=== PATIENT | female | born 1950 | race Caucasian/White ===

== ENCOUNTER 2022-07-15 22:03 | Inpatient (IN) | payer MEDICARE, OTHER ==
[2022-07-15] MEDS ORDERED: Nitroglycerin 50 MG/250 ML BOT 250 ML ONE (22:10)
[2022-07-15 22:36] LABS: #Monocytes 0.9 thou/uL (0.11-0.59); %Basophils 0.3 % (0.0-1.0); %Eosinophils 0.1 % (0.0-10.0); %Lymphocytes 18.2 % (21.0-51.0); %Monocytes 8.2 % (0.0-10.0); %Neutrophils 73.3 % (42.0-75.0); Hemoglobin 13.3 g/dL (12.0-16.0); Mean Corpuscular HGB CONC 33.5 g/dL (32.0-36.0); Mean Corpuscular Hemoglobin 34.4 pg (27.0-31.0); Mean Platelet Volume 8.3 fL (7.4-10.4); Platelet Count 296 10x3/uL (130-400); RBC Distribution Width 13.8 % (11.5-14.5); Red Blood Cell (RBC) Count 3.85 mill/uL (4.20-5.40); White Blood Cell (WBC) Count 10.9 10x3/uL (4.8-10.8)
[2022-07-15] MEDS ORDERED: Azithromycin 500 MG VIAL ONE (22:54)
[2022-07-15 22:58] LABS: ALT (SGPT) 61 U/L (8-55); AST (SGOT) 40 U/L (5-34); Albumin 4.2 g/dL (3.4-4.8); Alkaline Phosphatase 97 U/L (40-110); Anion Gap 15 mmol/L (10-20); BUN (Urea Nitrogen) 27 mg/dL (9.8-20.1); Bilirubin, Total 0.9 mg/dL (0.2-1.2); Calc. Creatinine Clearance 0 mL/min (70-130); Calcium 9.8 mg/dL (7.8-10.44); Carbon Dioxide 27 mmol/L (23-31); Chloride 101 mmol/L (98-107); Estimated GFR 46; Globulin 3.3 g/dL (2.4-3.5); Glucose 146 mg/dL (83-110); Potassium 4.3 mmol/L (3.5-5.1); Protein, Total 7.5 g/dL (5.8-8.1); Sodium 139 mmol/L (136-145)
[2022-07-15] MEDS ORDERED: cefTRIAXone\\ROCEPHIN 1 GM VIAL ONE (22:58)
[2022-07-15] MEDS ORDERED: Ondansetron PF 4 MG/2 ML Vial IVP PRN (23:34)
[2022-07-15] MEDS ORDERED: Ondansetron ODT 4 MG TAB PO PRN (23:34)
[2022-07-15] MEDS ORDERED: Acetaminophen 325 MG TAB PO PRN (23:34)
[2022-07-15] MEDS ORDERED: Acetaminophen 650 MG Suppository PR PRN (23:34)
[2022-07-15] MEDS ORDERED: Dextrose 5% in Water 1,000 ML IV PRN (23:55)
[2022-07-15] MEDS ORDERED: Dextrose 50% Abboject 50 ML SYRINGE SLOW IVP PRN (23:55)
[2022-07-16 01:28] LABS: SARS-CoV-2 NAA Rapid Test Not Detected (NotDetected)
[2022-07-16 01:47] VITALS: BMI 30.1
[2022-07-16 02:03] LABS: Troponin I 0.106 ng/mL (< 0.028)
[2022-07-16 04:47] LABS: Troponin I 0.105 ng/mL (< 0.028)
[2022-07-16] MEDS ORDERED: Non-Formulary Item 1 EACH (Fluticasone/Umeclidin/Vilanter [Trelegy Ellipta 100-62.5-25] 1 IH SCH (09:00)
[2022-07-16] MEDS ORDERED: Albuterol Sulfate 2.5 mg/3 ml Neb NEB PRN (09:18)
[2022-07-16] MEDS ORDERED: Levothyroxine Sodium 75 MCG TAB PO SCH (09:30)
[2022-07-16] MEDS: Aspirin 81 mg Enteric Coated Tablet PO SCH (09:37)
[2022-07-16] MEDS: Ezetimibe 10 MG TAB PO SCH (09:37)
[2022-07-16] MEDS: methylPREDNISolone Sod Succ 40 MG VIAL IVP SCH ×2 (09:37→09:49)
[2022-07-16] MEDS: Furosemide 40 MG/4 ML VIAL SLOW IVP SCH (09:37)
[2022-07-16] MEDS: Enoxaparin Sodium 40 MG/0.4 ML SYRINGE SC SCH (09:38)
[2022-07-16 10:09] LABS: #Lymphocytes 0.5 thou/uL (1.20-3.40); #Monocytes 0.1 thou/uL (0.11-0.59); #Neutrophils 5.9 thou/uL (1.40-6.50); %Basophils 0.4 % (0.0-1.0); %Eosinophils 0.1 % (0.0-10.0); %Lymphocytes 7.4 % (21.0-51.0); %Neutrophils 90.1 % (42.0-75.0); Mean Corpuscular HGB CONC 31.9 g/dL (32.0-36.0); Mean Corpuscular Hemoglobin 33.1 pg (27.0-31.0); Mean Platelet Volume 8.5 fL (7.4-10.4); Platelet Count 257 10x3/uL (130-400); RBC Distribution Width 13.7 % (11.5-14.5); Red Blood Cell (RBC) Count 3.31 mill/uL (4.20-5.40); White Blood Cell (WBC) Count 6.5 10x3/uL (4.8-10.8)
[2022-07-16 10:22] LABS: Anion Gap 15 mmol/L (10-20); BUN (Urea Nitrogen) 30 mg/dL (9.8-20.1); Calc. Creatinine Clearance 47 mL/min (70-130); Calcium 9.2 mg/dL (7.8-10.44); Carbon Dioxide 25 mmol/L (23-31); Chloride 103 mmol/L (98-107); Estimated GFR 49; Glucose 242 mg/dL (83-110); Potassium 4.7 mmol/L (3.5-5.1); Sodium 138 mmol/L (136-145)
[2022-07-16] MEDS ORDERED: predniSONE 20 MG TAB PO SCH (11:00)
[2022-07-16] MEDS: Mometasone 100 MCG/PUFF (1 INHALER) INH SCH (19:30)
[2022-07-16] MEDS ORDERED: cefTRIAXone\\ROCEPHIN 1 GM in Sodium Chloride 0.9% 100 ML IVPB SCH (21:00)
[2022-07-16] MEDS: TICAGRELOR 90 MG TABLET PO SCH (21:01)
[2022-07-16] MEDS: Atorvastatin Calcium 40 MG TAB PO SCH (21:01)
[2022-07-16] MEDS: Artificial Tear Sol 15 ML BOT EA EYE SCH (21:01)
[2022-07-16] MEDS: Azithromycin 500 MG in Sodium Chloride 0.9% 250 ML 250 ML IVPB SCH (21:06)
[2022-07-17 04:35] LABS: #Lymphocytes 0.7 thou/uL (1.20-3.40); #Neutrophils 8.6 thou/uL (1.40-6.50); %Monocytes 9.7 % (0.0-10.0); %Neutrophils 83.3 % (42.0-75.0); Hemoglobin 9.9 g/dL (12.0-16.0); Mean Corpuscular HGB CONC 32.5 g/dL (32.0-36.0); Mean Corpuscular Hemoglobin 33.7 pg (27.0-31.0); Mean Platelet Volume 8.7 fL (7.4-10.4); Platelet Count 237 10x3/uL (130-400); RBC Distribution Width 13.8 % (11.5-14.5); Red Blood Cell (RBC) Count 2.93 mill/uL (4.20-5.40); White Blood Cell (WBC) Count 10.3 10x3/uL (4.8-10.8)
[2022-07-17 04:51] LABS: Anion Gap 13 mmol/L (10-20); BUN (Urea Nitrogen) 39 mg/dL (9.8-20.1); Calc. Creatinine Clearance 45 mL/min (70-130); Calcium 8.5 mg/dL (7.8-10.44); Carbon Dioxide 25 mmol/L (23-31); Chloride 102 mmol/L (98-107); Estimated GFR 46; Glucose 327 mg/dL (83-110); Magnesium 2.4 mg/dL (1.6-2.6); Potassium 4.9 mmol/L (3.5-5.1); Sodium 135 mmol/L (136-145)
[2022-07-17] MEDS: Levothyroxine Sodium 75 MCG TAB PO SCH (06:15)
[2022-07-17] MEDS: Mometasone 100 MCG/PUFF (1 INHALER) INH SCH ×2 (06:25→18:43)
[2022-07-17] MEDS ORDERED: predniSONE 5 MG TAB PO SCH (08:00)
[2022-07-17] MEDS: Aspirin 81 mg Enteric Coated Tablet PO SCH (08:14)
[2022-07-17] MEDS: Enoxaparin Sodium 40 MG/0.4 ML SYRINGE SC SCH (08:15)
[2022-07-17] MEDS: Furosemide 40 MG/4 ML VIAL SLOW IVP SCH (08:15)
[2022-07-17] MEDS: Ezetimibe 10 MG TAB PO SCH (08:15)
[2022-07-17] MEDS: TICAGRELOR 90 MG TABLET PO SCH ×2 (08:15→19:51)
[2022-07-17] MEDS: Artificial Tear Sol 15 ML BOT EA EYE SCH ×2 (08:21→19:52)
[2022-07-17] MEDS ORDERED: Escitalopram Oxalate 20 mg Tablet PO SCH (09:00)
[2022-07-17] MEDS ORDERED: Nitroglycerin 0.4 MG TAB (25 Tab Bottle) SL PRN (19:44)
[2022-07-17] MEDS ORDERED: Nitroglycerin 0.4 MG TAB (25 Tab Bottle) ONE (19:47)
[2022-07-17] MEDS: Atorvastatin Calcium 40 MG TAB PO SCH (19:51)
[2022-07-17] MEDS: Azithromycin 500 MG in Sodium Chloride 0.9% 250 ML 250 ML IVPB SCH (21:11)
[2022-07-18 04:31] LABS: #Lymphocytes 0.9 thou/uL (1.20-3.40); #Monocytes 0.6 thou/uL (0.11-0.59); #Neutrophils 6.1 thou/uL (1.40-6.50); %Basophils 0.3 % (0.0-1.0); %Eosinophils 0.1 % (0.0-10.0); %Lymphocytes 11.7 % (21.0-51.0); %Monocytes 8.1 % (0.0-10.0); %Neutrophils 79.8 % (42.0-75.0); Hemoglobin 9.7 g/dL (12.0-16.0); Mean Corpuscular HGB CONC 33.5 g/dL (32.0-36.0); Mean Corpuscular Hemoglobin 34.3 pg (27.0-31.0); Mean Platelet Volume 8.4 fL (7.4-10.4); Platelet Count 268 10x3/uL (130-400); RBC Distribution Width 13.8 % (11.5-14.5); Red Blood Cell (RBC) Count 2.83 mill/uL (4.20-5.40); White Blood Cell (WBC) Count 7.6 10x3/uL (4.8-10.8)
[2022-07-18 04:54] LABS: Anion Gap 11 mmol/L (10-20); BUN (Urea Nitrogen) 38 mg/dL (9.8-20.1); Calc. Creatinine Clearance 52 mL/min (70-130); Calcium 9.4 mg/dL (7.8-10.44); Carbon Dioxide 29 mmol/L (23-31); Chloride 102 mmol/L (98-107); Estimated GFR 54; Glucose 189 mg/dL (83-110); Potassium 4.1 mmol/L (3.5-5.1); Sodium 138 mmol/L (136-145)
[2022-07-18] MEDS: Levothyroxine Sodium 75 MCG TAB PO SCH (06:40)
[2022-07-18 07:28] VITALS: TEMP 97.6
[2022-07-18] MEDS: Mometasone 100 MCG/PUFF (1 INHALER) INH SCH (07:31)
[2022-07-18] MEDS: Artificial Tear Sol 15 ML BOT EA EYE SCH (07:58)
[2022-07-18] MEDS: Enoxaparin Sodium 40 MG/0.4 ML SYRINGE SC SCH (07:58)
[2022-07-18] MEDS: Aspirin 81 mg Enteric Coated Tablet PO SCH (07:58)
[2022-07-18] MEDS: Furosemide 40 MG/4 ML VIAL SLOW IVP SCH (07:59)
[2022-07-18] MEDS: Ezetimibe 10 MG TAB PO SCH (07:59)
[2022-07-18] MEDS: TICAGRELOR 90 MG TABLET PO SCH (07:59)
[2022-07-18] MEDS ORDERED: predniSONE 5 MG TAB PO SCH (08:00)
[2022-07-19] MEDS ORDERED: predniSONE 5 MG TAB PO SCH (08:00)
== END 2022-07-18 11:20 | disposition home or self-care (01) | DRG 193 ==
LOC: ERS 22:03 → EDBD 23:36 → IMCU/EMU 23:36
PROVIDERS: ADMIT Student in an Organized Health Care Education/Training Program; ATTEND Internal Medicine
PROC: 5A09457 Assistance with Respiratory Ventilation, 24-96 Consecutive Hours, Continuous Positive Airway Pressure (ICD-10-PCS; principal; 2022-07-15)
DX: J18.9 Pneumonia, unspecified organism (principal); J81.0 Acute pulmonary edema; J96.01 Acute respiratory failure with hypoxia; J44.1 Chronic obstructive pulmonary disease with (acute) exacerbation; N18.4 Chronic kidney disease, stage 4 (severe); I13.0 Hypertensive heart and chronic kidney disease with heart failure and stage 1 through stage 4 chronic kidney disease, or unspecified chronic kidney disease; I16.1 Hypertensive emergency; Z96.41 Presence of insulin pump (external) (internal); E10.22 Type 1 diabetes mellitus with diabetic chronic kidney disease; I50.9 Heart failure, unspecified; Z79.4 Long term (current) use of insulin; Z90.710 Acquired absence of both cervix and uterus; Z87.891 Personal history of nicotine dependence; Z88.2 Allergy status to sulfonamides
CPT/HCPCS: 36415; 36416; 71045; 80048; 80053; 83605; 83735; 83880; 84145; 84484; 85025; 87040; 93005; 94640; 94660; 96374; 96375; J0456; J0696; J1650; J1940; J2920; J7050; J7512; J7620; U0002